=== PATIENT | female | born 1995 | race Caucasian/White ===

== ENCOUNTER 2021-11-22 06:58 | Day surgery (SDC) | payer OTHER ==
[~2021-11-22] VITALS: Ht 165.1 cm; Wt 70.0 kg
--- NOTE | 2021-11-22 09:38 | NUR ---
11/22/21 0938 Kathryn,Lashanda 0907 PT ARRIVED TO PACU WITH ORAL AIRWAY IN PLACE. VSS. PT NONAROUSABLE, HEAD MOVED AND JAW THRUST NO LONGER NEEDED. 0930 HOB INCREASED SLIGHTLY PER MD.
--- NOTE | 2021-11-22 10:57 | NUR ---
PATIENT RESTING WITH EYES CLOSED. REPORTS PAIN 2/10 ON PAIN SCALE, VISUALIZED SURGICAL SITE AT THROAT APPEARS WNL. PATIENT TOLERATING PUDDING AND WATER. PATIENT UP TO BATHROOM VOIDED WELL NOW DRESSING SELF.
--- NOTE | 2021-11-29 10:47 | OR ---
[facility] [address] [place], [place] [address] Signed DATE OF OPERATION: 11/22/2021 SURGEON: Gil Benson MD PREOPERATIVE DIAGNOSIS: Chronic tonsillitis. POSTOPERATIVE DIAGNOSIS: Chronic tonsillitis. PROCEDURE: Tonsillectomy. ANESTHESIA: General orotracheal. Williams JANE. PREOPERATIVE HISTORY: Tonia is a 25-year-old lady with chronic tonsillitis, tonsillar hypertrophy, cryptic tonsillitis, and tonsil lithiasis, taken to the operating room for the above-mentioned procedures. PROCEDURE AND FINDINGS: After informed consent, the patient was taken to the operating room, placed in supine position, where general orotracheal anesthesia was induced. The patient and procedure were verified. The patient was repositioned. McIvor mouth gag placed in suspension. Headlight exam of the pharynx showed markedly hypertrophic tonsils. Right tonsil is larger than the left, but both 2 to 3+ obstructive. The left tonsil was grasped with a tenaculum, retracted medially and removed from its fossa with mucosal sparing incision with Coblation, lots of scar tissue around the tonsil laterally superiorly. The same procedure on the right tonsil. Tonsils were sent to pathology. Hemostasis was verified. The mouth gag was released for several minutes. Reinspection showed no bleeding points. Pharynx was suctioned clear of blood secretions. Mouth gag was removed. The patient was awakened, extubated, transported to recovery room in good condition. No complications. BLOOD LOSS: Minimal. SPECIMEN: To pathology. Electronically Signed By: GIL BENSON MD 11/29/21 1047 PATIENT NAME: JAG WARE OPERATIVE REPORT DATE OF : [birth year] REPORT #: [id number] PHYSICIAN: GIL BENSON MD PCP: HECTOR ANTUNEZ PA-C REPORT IS CONFIDENTIAL AND NOT TO BE RELEASED WITHOUT AUTHORIZATION [address] [address] Signed DRAINS: No drains. Gil Benson MD GC/CONSTANTINO /[id number] Copies: ~ Electronically Signed By: GIL BENSON MD 11/29/21 1047 PATIENT NAME: JAG WARE OPERATIVE REPORT DATE OF : [birth year] REPORT #: [id number] PHYSICIAN: GIL BENSON MD PCP: HECTOR ANTUNEZ PA-C REPORT IS CONFIDENTIAL AND NOT TO BE RELEASED WITHOUT AUTHORIZATION
== END 2021-11-22 11:05 | disposition home or self-care (01) ==
LOC: DS 06:58 → OPS 06:58 → DS 07:30 → OPS 08:30
PROVIDERS: ATTEND Otolaryngology
PROC: 0CTPXZZ Resection of Tonsils, External Approach (ICD-10-PCS; principal; 2021-11-22 08:30)
DX: J35.01 Chronic tonsillitis (principal); Z88.0 Allergy status to penicillin
CPT/HCPCS: 00170; J0330; J1100; J1885; J2250; J2405; J2704; J2765; J3010; J7040; J7121

== ENCOUNTER 2022-05-31 10:51 | Emergency (ER) | payer OTHER ==
[~2022-05-31] VITALS: Ht 165.1 cm; Wt 71.1 kg
[2022-05-31] MEDS ORDERED: VENTOLIN HFA18 GM INH (11:21)
== END 2022-05-31 13:35 | disposition home or self-care (01) ==
LOC: ED 10:51
DX: R09.1 Pleurisy (principal); J45.909 Unspecified asthma, uncomplicated; Z88.0 Allergy status to penicillin; Z79.899 Other long term (current) drug therapy; Z20.822 Contact with and (suspected) exposure to COVID-19
CPT/HCPCS: 71046; 87502; 99285-25; C9803; U0003